=== PATIENT | female | born 1975 | race Caucasian/White ===

== ENCOUNTER 2016-06-13 14:42 | Emergency (ER) | payer OTHER ==
[~2016-06-13] VITALS: Ht 165.1 cm; Wt 150.0 kg
[2016-06-13 14:43] VITALS: BP 168/103; PULSE 98; RESP 20; TEMP 98; O2SAT 98
[2016-06-13] MEDS ORDERED: IBUP800T23 PO (15:53)
--- NOTE | 2016-06-13 15:55 | PD ---
HPI Chief Complaint: Laceration/Skin Injury Time Seen by Provider: 15:52 Travel History International Travel<30 days: No Contact w/Intl Traveler<30days: No Traveled to known affect area: No History of Present Illness HPI 40-year-old female presents to the emergency Department with complaint of a laceration to her left index finger obtained from a saw while gardening today. Denies paresthesias, loss of sensation, decreased range of motion, decreased strength to the affected finger. Is not up-to-date on her tetanus laxation. Has not taken any medications for any chance to repeat her symptoms. Has applied pressure and a bandage to control bleeding. Allergies to sulfa. No other modifying factors or associated signs and symptoms. PFSH Past Medical History Diabetes: Yes Patient Takes Glucophage: Yes ?: Not LMP: ON DEPO Social History Alcohol Use: No Tobacco Use: No Substance Use: No Allergies-Medications (Allergen,Severity, Reaction): Coded Allergies: Sulfa (Verified Allergy, Unknown, 06/13/16) Reported Meds & Prescriptions Reported Meds & Active Scripts Active Ibuprofen 800 Mg Tab 800 Mg PO Q6HR PRN Review of Systems Except as stated in HPI: all other systems reviewed are Neg Physical Exam Narrative GENERAL: Well-nourished, well-developed female patient, in no acute distress SKIN: Warm and dry. Abrasion of left index finger to the dorsal aspect over the PIP joint; finger is with full range of motion, sensory intact, good opposition; without erythema, edema. HEAD: Atraumatic. Normocephalic. EYES: Pupils equal and round. No scleral icterus. No injection or drainage. ENT: Mucosa pink and moist. Airway patent. NECK: Trachea midline. CARDIOVASCULAR: Regular rate. RESPIRATORY: No accessory muscle use. GASTROINTESTINAL: Obese. MUSCULOSKELETAL: No obvious deformities. No clubbing. No cyanosis. No edema. NEUROLOGICAL: Awake and alert. Oriented 3. No obvious cranial nerve deficits. Motor grossly within normal limits. Normal speech. PSYCHIATRIC: Appropriate mood and affect; insight and judgment normal. Data Data Last Documented VS Vital Signs Date Time Temp Pulse Resp B/P Pulse Ox O2 Delivery O2 Flow Rate FiO2 06/13/16 14:43 98.0 98 20 168/103 98 Room Air Orders Tetanus/Diphtheria Tox Adult (Tetanus/Di (06/13/16 16:00) Wound Care (06/13/16 15:52) [facility] Medical Decision Making Medical Screen Exam Complete: Yes Emergency Medical Condition: Yes Medical Record Reviewed: Yes Differential Diagnosis Laceration abrasion, cut Narrative Course 40-year-old female with a abrasion to the dorsal aspect of the left index finger that was caused by a saw while gardening. Tetanus updated in the ER. Wound care provided. Ibuprofen prescribed for home. Patient verbalizes understanding and agreement with treatment plan. Patient is medically cleared and stable for discharge. Discussed reasons to return to the emergency department. Instructed patient to follow up with primary care provider. Patient agrees with treatment plan. The patients vital signs are stable and the patient is stable for outpatient follow-up and treatment. Patient discharged home, stable and in no acute distress. Diagnosis Primary Impression: Abrasion of left index finger Qualified Code: S60.411A - Abrasion of left index finger, initial encounter Referrals: Primary Care Physician Patient Instructions: Abrasion (ED), General Instructions Additional Instructions: Topical antibiotic ointment to affected area as directed and as needed for wound care Keep area clean and dry Cover bandage as needed Ibuprofen or Tylenol as directed and as needed for pain and inflammation Follow-up with primary care provider Return to the emergency department immediately with worsening of symptoms Med/Other Pt SpecificInfo: Prescription(s) given Scripts Ibuprofen 800 Mg Epl883 Mg PO Q6HR PRN (PAIN) #20 TAB Ref 0 Prov:Tere Verma 06/13/16 Disposition: 01 DISCHARGE HOME Condition: Stable Tere Verma Jun 13, 2016 15:55
[2016-06-13] MEDS ORDERED: TETANUS/DIPHTHERIA TOXOID ADULT 0.5 ML VIAL IM ONE (16:00)
== END 2016-06-13 16:14 | disposition home or self-care (01) ==
LOC: NEPB 14:42
DX: S60.411A Abrasion of left index finger, initial encounter (principal); W27.0XXA Contact with workbench tool, initial encounter; Y93.H2 Activity, gardening and landscaping; Y92.007 Garden or yard of unspecified non-institutional (private) residence as the place of occurrence of the external cause; E11.9 Type 2 diabetes mellitus without complications; Z23 Encounter for immunization
CPT/HCPCS: 90471; 90714